=== PATIENT | female | born 1965 | race Caucasian/White ===

== ENCOUNTER 2017-03-12 22:24 | Emergency (ER) | payer SELFPAY ==
[2017-03-12] MEDS ORDERED: ONDANSETRON HCL INJ/PF 4 MG/2 ML SDV IV ONE (22:30)
[2017-03-12] MEDS ORDERED: NORMAL SALINE 1000 ML 1,000 ML IV ONE (22:30)
[2017-03-12 22:42] VITALS: BP 182/77
[2017-03-12 23:16] LABS: ALANINE AMINOTRANSFERASE 28 U/L (9-52); ALBUMIN 4.4 g/dL (3.5-5.0); ALKALINE PHOSPHATASE 80 U/L (38-126); ANION GAP 13 (5-19); ASPARTATE AMINO TRANSFERASE 23 U/L (14-36); BILIRUBIN,DIRECT 0.4 mg/dL (0.0-0.4); BILIRUBIN,TOTAL 0.7 mg/dL (0.2-1.3); BLOOD UREA NITROGEN 14 mg/dL (7-20); CALCIUM 9.6 mg/dL (8.4-10.2); CARBON DIOXIDE 26 mmol/L (22-30); CHLORIDE 102 mmol/L (98-107); CREATININE RESULT 0.63 mg/dL (0.52-1.25); GLUCOSE 115 mg/dL (75-110); SODIUM 140.9 mmol/L (137-145); TOTAL PROTEIN 7.2 g/dL (6.3-8.2)
--- NOTE | 2017-03-12 23:16 | ER Document Report ---
ED General - General Chief Complaint: Nausea/Vomiting Stated Complaint: NAUSEA/VOMITING Time Seen by Provider: 03/12/17 22:29 Notes: Patient is a 52-year-old female without past medical history who presents with 24 hours of progressively worsening nausea, vomiting and epigastric discomfort. Describes epigastric discomfort as a dull, raw, moderately intense pain. Notes that she has frequent belching and throat discomfort with this. No history of similar symptoms in the past. Nothing improves or worsens her symptoms. She has not seen her primary care doctor regarding todays concerns. She denies any chest pain, shortness of breath, pleuritic pain, hemoptysis, lower abdominal pain, vaginal bleeding, vaginal discharge or dysuria. No flank pain. Past Medical History - General Information source: Patient - Social History Smoking Status: Never Smoker Frequency of alcohol use: None Drug Abuse: None Lives with: Spouse/Significant other Family History: Reviewed & Not Pertinent Review of Systems - Review of Systems Notes: Constitutional: Negative for fever. HENT: Negative for sore throat. Eyes: Negative for visual changes. Cardiovascular: Negative for chest pain. Respiratory: Negative for shortness of breath. Gastrointestinal: Positive for epigastric abdominal pain and vomiting Genitourinary: Negative for dysuria. Musculoskeletal: Negative for back pain. Skin: Negative for rash. Neurological: Negative for headaches, weakness or numbness. 10 point ROS negative except as marked above and in HPI. Physical Exam - Vital signs Vitals: Temp Pulse Resp BP Pulse Ox 98.0 F 68 16 182/77 H 100 03/12/17 22:29 03/12/17 22:29 03/12/17 22:29 03/12/17 22:29 03/12/17 22:29 Interpretation: Hypertensive Notes: PHYSICAL EXAMINATION: GENERAL: Well-appearing, well-nourished and in no acute distress. HEAD: Atraumatic, normocephalic. EYES: Pupils equal round and reactive to light, extraocular movements intact, sclera anicteric, conjunctiva are normal. ENT: nares patent, oropharynx clear without exudates. Moist mucous membranes. NECK: Normal range of motion, supple without lymphadenopathy LUNGS: Breath sounds clear to auscultation bilaterally and equal. No wheezes rales or rhonchi. HEART: Regular rate and rhythm without murmurs ABDOMEN: Soft, mild epigastric abdominal tenderness, normoactive bowel sounds. No guarding, no rebound. No masses appreciated. EXTREMITIES: Normal range of motion, no pitting or edema. No cyanosis. NEUROLOGICAL: No focal neurological deficits. Moves all extremities spontaneously and on command. PSYCH: Normal mood, normal affect. SKIN: Warm, Dry, normal turgor, no rashes or lesions noted. Course - Re-evaluation Re-evalutation: 03/12/17 23:15 Patient presents with epigastric abdominal pain with associated reflux symptoms most consistent with likely gastritis. Patient has no focal abdominal tenderness on examination. Right upper quadrant ultrasound does not demonstrate any evidence of acute cholecystitis or cholelithiasis. Lipase is normal. No LFT changes. Based on history and exam, I do not suspect ACS, pulmonary embolus, SBO, mesenteric ischemia, acute pancreatitis, biliary pathology, or an abdominal aortic dissection. Patient has had improvement of symptoms here with a GI cocktail. At this time will discharge with return precautions and follow-up recommendations. Verbal discharge instructions given a the bedside and opportunity for questions given. Medication warnings reviewed. Patient is in agreement with this plan and has verbalized understanding of return precautions and the need for primary care follow-up in the next 24-72 hours. - Vital Signs Vital signs: Temp Pulse Resp BP Pulse Ox 98.0 F 68 16 182/77 H 100 03/12/17 22:29 03/12/17 22:29 03/12/17 22:29 03/12/17 22:29 03/12/17 22:29 - Laboratory Result Diagrams: 03/12/17 22:49 Laboratory results interpreted by me: 03/12/17 03/12/17 22:49 23:33 Glucose 115 H Urine Ketones 20 H Discharge - Discharge Condition: Good Disposition: HOME, SELF-CARE
[2017-03-12 23:17] LABS: POTASSIUM 3.8 mmol/L (3.6-5.0)
[2017-03-12 23:18] LABS: ADD ON TESTING BLD IN LAB ACKNOWLEDGE
[2017-03-12 23:38] LABS: LIPASE 66.5 U/L (23-300)
[2017-03-13 00:09] LABS: APPEARANCE,URINE CLEAR; BILIRUBIN,URINE NEGATIVE (NEGATIVE); GLUCOSE, URINE NEGATIVE (NEGATIVE); KETONES,URINE 20 mg/dL (NEGATIVE); LEUKOCYTE ESTERASE,URINE NEGATIVE (NEGATIVE); NITRITE,URINE NEGATIVE (NEGATIVE); PROTEIN,URINE NEGATIVE (NEGATIVE); UROBILINOGEN,URINE NEGATIVE mg/dL (<2.0)
[2017-03-13] MEDS ORDERED: PROCHLORPERAZINE EDISYLATE INJ 10 MG/2 ML VIAL ONE (00:58)
[2017-03-13] MEDS ORDERED: METOCLOPRAMIDE HCL ORAL SOLN 10 MG/10 ML UDCUP ONE (00:59)
[2017-03-13] MEDS ORDERED: DIPHENHYDRAMINE HCL 50 MG/ML VIAL ONE (00:59)
[2017-03-13] MEDS ORDERED: LIDOCAINE 2% VISCOUS SOLN 20 ML UDCUP ONE (01:00)
[2017-03-13] MEDS ORDERED: MAG HYDROX/AL HYDROX/SIMETH SUSP 30 ML UDCUP ONE (01:00)
[2017-03-13] MEDS ORDERED: ALBUTEROL SULFATE 0.083% NEB 2.5 MG/3 ML AMPUL NEB ONE (02:11)
[2017-03-13] MEDS ORDERED: ONDANSETRON ODT 4 MG TAB (6 TAB/DSPK) ONE (02:17)
--- NOTE | 2017-03-13 13:11 | EKG REPORT ---
SEVERITY:- NORMAL ECG - SINUS RHYTHM : Confirmed by: Segundo Avilez 13-Mar-2017 13:10:16
== END 2017-03-13 02:43 | disposition home or self-care (01) ==
LOC: ER 22:24
DX: R11.2 Nausea with vomiting, unspecified (principal); R10.13 Epigastric pain
CPT/HCPCS: 93005; 99284; 96361; 96374; 36415; 83690; 80053; 81001; 84484; 93010; J2405; J7030

== ENCOUNTER 2017-03-17 12:36 | Inpatient (IN) | payer SELFPAY ==
[~2017-03-17 12:36] MED LIST: DEXAMETHASONE SOD PHOSPHATE INJ 4 MG/1 ML VIAL ONE; GLYCOPYRROLATE INJ 0.4 MG/2 ML VIAL ONE; LIDOCAINE 2% INJ-PF (20 MG/ML) 10 ML AMPUL ONE; NEOSTIGMINE METHYLSULFATE 10 MG/10 ML VIAL ONE; ONDANSETRON HCL INJ/PF 4 MG/2 ML SDV ONE; ROCURONIUM BROMIDE INJ 50 MG/5 ML VIAL IV ONE
[2017-03-17] MEDS ORDERED: PIPERACILLIN/TAZOBACTAM 3.375 GM VIAL IV ONE (13:22)
[2017-03-17] MEDS ORDERED: MORPHINE SULFATE 10 MG/ML INJ ONE ×2 (13:23→15:54)
[2017-03-17] MEDS ORDERED: ONDANSETRON HCL INJ/PF 4 MG/2 ML SDV ONE ×2 (13:24→19:39)
[2017-03-17] MEDS ORDERED: HYDROMORPHONE HCL INJ/PF 2 MG/ML AMPULE ONE (16:58)
[2017-03-17] MEDS ORDERED: FENTANYL CITRATE INJ/PF 100 MCG/2 ML AMPUL ONE (16:58)
[2017-03-17] MEDS ORDERED: EPHEDRINE SULFATE INJ 50 MG/1 ML AMPULE ONE (16:59)
[2017-03-17] MEDS ORDERED: MIDAZOLAM 2 MG/2 ML INJ ONE (16:59)
[2017-03-17] MEDS ORDERED: ACETAMINOPHEN 100 ML IV ONE (16:59)
[2017-03-17] MEDS ORDERED: PROPOFOL INJ 200 MG/20 ML VIAL IV ONE (16:59)
[2017-03-17] MEDS ORDERED: FAMOTIDINE INJ/PF 20 MG/2 ML SDV IV ONE (19:49)
[2017-03-17] MEDS ORDERED: HYDROMORPHONE HCL INJ/PF 2 MG/ML AMPULE IV PRN ×2 (20:06→20:07)
[2017-03-17] MEDS ORDERED: LORAZEPAM INJ 2 MG/1 ML VIAL IV PRN (23:56)
[2017-03-18] MEDS ORDERED: MORPHINE SULFATE 10 MG/ML INJ ONE (01:12)
[2017-03-18] MEDS ORDERED: MORPHINE SULFATE 10 MG/ML INJ IV PRN ×3 (01:34→05:20)
[2017-03-18] MEDS: PIPERACILLIN SODIUM/TAZOBACTAM 3.375 GM in NORMAL SALINE 100 ML IV SCH ×3 (05:34→17:15)
[2017-03-18] MEDS: FAMOTIDINE INJ/PF 20 MG/2 ML SDV IV SCH ×2 (05:34→17:14)
[2017-03-18 07:41] LABS: HEMATOCRIT 38.4 % (36.0-47.0); HEMOGLOBIN 12.8 g/dL (12.0-15.5); MEAN CORPUSCULAR HEMOGLOBIN 29.9 pg (27.0-33.4); MEAN CORPUSCULAR HGB CONC 33.4 g/dL (32.0-36.0); MEAN CORPUSCULAR VOLUME 89 fl (80-97); RED CELL DISTRIBUTION WIDTH 13.8 % (11.5-14.0); WHITE BLOOD COUNT 12.8 10^3/uL (4.0-10.5)
[2017-03-18 08:07] LABS: ANION GAP 12 (5-19); BLOOD UREA NITROGEN 12 mg/dL (7-20); CALCIUM 8.4 mg/dL (8.4-10.2); CARBON DIOXIDE 28 mmol/L (22-30); CHLORIDE 100 mmol/L (98-107); CREATININE RESULT 0.51 mg/dL (0.52-1.25); GLUCOSE 123 mg/dL (75-110); POTASSIUM 3.8 mmol/L (3.6-5.0); SODIUM 140.4 mmol/L (137-145)
[2017-03-18] MEDS ORDERED: LORAZEPAM INJ 2 MG/1 ML VIAL IV PRN (08:08)
[2017-03-18 08:22] LABS: ABSOLUTE BASOPHILS # (AUTO) 0.1 10^3/uL (0.0-0.2); ABSOLUTE EOSINOPHILS # (AUTO) 0.2 10^3/uL (0.0-0.6); ABSOLUTE LYMPHOCYTES (AUTO) 1.1 10^3/uL (0.5-4.7); ABSOLUTE MONOCYTES (AUTO) 1.1 10^3/uL (0.1-1.4); ABSOLUTE NEUT (AUTO) 7.9 10^3/uL (1.7-8.2); BASOPHILS % (AUTO) 0.5 % (0-2); EOSINOPHILS % (AUTO) 1.6 % (0-6); HEMOGLOBIN 13.9 g/dL (12.0-15.5); HGB HCT DIFFERENCE 0.7; LYMPHOCYTES % (AUTO) 10.6 % (13-45); MEAN CORPUSCULAR HEMOGLOBIN 30.3 pg (27.0-33.4); MEAN CORPUSCULAR HGB CONC 33.8 g/dL (32.0-36.0); MEAN CORPUSCULAR VOLUME 90 fl (80-97); MONOCYTES % (AUTO) 10.7 % (3-13); RED BLOOD COUNT 4.58 10^6/uL (3.72-5.28); RED CELL DISTRIBUTION WIDTH 14.1 % (11.5-14.0); SEGMENTED NEUTROPHILS % (AUTO) 76.6 % (42-78); WHITE BLOOD COUNT 10.3 10^3/uL (4.0-10.5)
--- NOTE | 2017-03-18 09:37 | OPERATIVE REPORT E ---
Operative Report NAME: YI LAWLER : 1965 AGE: 52Y DATE OF SURGERY: 03/17/2017 ROOM: 533 PREOPERATIVE DIAGNOSIS: Appendicitis. POSTOPERATIVE DIAGNOSIS: Perforated appendicitis with abscess. OPERATION: Attempted laparoscopic appendectomy converted to an open appendectomy, partial cecectomy, and drainage of intra-abdominal abscess. SURGEON: AMANDA GOLDSMITH M.D. ANESTHESIA: General. INDICATION FOR SURGERY: The patient is a female who presents with a 1-week history of lower abdominal pain. She had been to the emergency room approximately 3 days ago and was diagnosed with gastroenteritis and discharged. She goes to her urgent care today where a CT scan was ordered showing appendicitis. FINDINGS AT SURGERY: The patient had an acute gangrenous perforated appendicitis with an abscess being present in an interloop portion of bowel. The infection and inflammation also involved the cecal area adjacent to the appendix opening. Because of this, a partial cecectomy was performed in order to staple across viable tissue that was not involved with any significant inflammation. After doing the partial cecectomy, the ileocecal valve was intact and was not encroached upon significantly. PROCEDURE: After informed consent was obtained, the patient was taken to the operating room and placed in the supine position. General endotracheal anesthesia was administered. The patient's abdomen was then prepped/draped in the usual sterile fashion. An incision was then made in the left upper quadrant, and a 5 mm Optiview trocar was inserted through this incision, through the fascia and into the abdominal cavity under direct vision. The abdomen was then insufflated. Looking inside, no injuries were noted. A 12 mm port was then placed in the left lower quadrant and a second 5 mm port placed through a right upper quadrant incision. Looking down the pelvis, there was inflammation with small bowel being involved. These were inflammatory adhesions. These were broken up exposing the abscess that was interloop caused by perforated appendicitis. The purulent fluid as aspirated. Care was taken to dissect the gangrenous appendix away from the surrounding structures. I was able to free up the appendix and view the mesentery of the appendix. However, the inflammation involved the cecum adjacent to the appendix. I did not feel that I would be able to staple across the cecum adequately laparoscopically. The lateral peritoneal fold was then incised mobilizing the right colon. The ports were then removed, and lower midline incision was then made in the skin using a scalpel. It was carried down to and through the fascial layer using electrocautery. The appendix, cecum, and terminal ileum was then brought up out of the wound. The mesentery of the appendix was then divided using harmonic scalpel. I was then able to place a DAVEY-75 stapling device across the cecum next to the appendix. This was right at the ileocecal valve, but I did not encroach upon it. The cecum involved in the inflammation was then removed. The staple line was then imbricated using a running 3-0 Vicryl suture placed in Lembert fashion burying the suture line. Again, care was taken to avoid encroaching upon the ileocecal valve. Omentum was then brought down to cover the suture line. I had taken down the gastrocolic ligament from the transverse colon and dividing it on the left side laterally. This allowed a tongue or omentum to be brought down and sutured to the right colon and he cecum covering the suture line. The abdominal cavity was copiously irrigated until the return fluid was clear. A 15-Mode drain was brought through the port site in the right upper quadrant down in the right lower quadrant, going down into the pelvis. It was secured to the skin using 3-0 nylon suture. The anterior abdominal fascial layer was then closed using running #1-PDS suture. The skin incision at the umbilicus was approximated loosely using #4-0 nylon suture. The rest of the wound was then packed open, and a dry dressing was placed on top. The patient was then awakened, extubated, taken from the operating room in stable condition. SPECIMENS: Appendix and partial cecum along with abscess fluid for gram stain, culture, and sensitivity. ESTIMATED BLOOD LOSS: 50 mL. CLASSIFICATION OF WOUND: Dirty . DRAINS AND PACKS: The wound was packed open, and a drain was placed intra-abdominally. COMPLICATIONS: None. DICTATING PHYSICIAN: AMANDA GOLDSMITH M.D. [id number] PHY#: [id number] ID: [id number] JOB#: [id number] ACCT: [id number] cc:AMANDA GOLDSMITH M.D. > [facility]
--- NOTE | 2017-03-18 09:45 | HISTORY AND PHYSICAL E ---
History and Physical NAME: YI LAWLER : 1965 AGE: 52Y ADMITTED: 03/17/2017 ROOM: 533 CHIEF COMPLAINT: Lower abdominal pain. HISTORY OF PRESENT ILLNESS: The patient is a 52-year-old female who presents with lower abdominal pain for 1 week. It was steadily getting worse, and she went to the emergency room 3 days prior where she was diagnosed with gastroenteritis and discharged home. She continued to have abdominal pain and therefore came to an urgent care who then had a CT scan which showed appendicitis, during her then to go to the emergency room. Her white blood cell count was 10,000. She has had nausea but no vomiting, and she denies any diarrhea or constipation. PAST SURGICAL HISTORY: 1. Breast augmentation. 2. Abdominoplasty. 3. Total abdominal hysterectomy. ALLERGIES TO MEDICATION: None. MEDICATIONS: Effexor. PAST MEDICAL HISTORY: Medical problems: 1. Anxiety. 2. Depression. SOCIAL HISTORY: Single. FAMILY HISTORY: Noncontributory. REVIEW OF SYSTEMS: CONSTITUTIONAL: Not feeling well. GASTROINTESTINAL: Abdominal pain and nausea. PSYCHOLOGICAL: Anxiety/depression. A 12-point review of systems was obtained with pertinent positives discussed and all others being negative. PHYSICAL EXAMINATION: VITAL SIGNS: Afebrile. GENERAL: The patient is lying in bed. She is in mild distress secondary to abdominal pain. HEENT: Eyes nonicteric. NECK: No lymphadenopathy. HEART: Regular. LUNGS: Clear. BACK: Nontender. ABDOMEN: Soft, mildly distended, tender in the suprapubic region. No hernias. Previous abdominoplasty scars. EXTREMITIES: No edema, cyanosis. NEUROLOGICAL: The patient appears to be neurologically intact without any deficits. PSYCHOLOGICAL: The patient is coherent, cooperative, and appears to answer questions fully. DIAGNOSTIC DATA: The patient's CT scan shows a 2 cm acute appendicitis being present with appendix located below the umbilicus and having a redundant right colon. It does not show any obvious abscess. ASSESSMENT: Acute abdominal pain secondary to acute appendicitis. I have also explained that she does have a very dilated appendix, and this could be a mucocele or even carcinoma. I have discussed laparoscopic appendectomy, possible laparotomy with her in case this does hose turner to be a mucocele. With these types of disease process, usually an open appendectomy is the ideal surgical method in removing it. Other risks include but not limited to bleeding, infection, anesthesia risks, heart and lung problems, wound healing problems, hernia formation, injuries to abdominal structures causing morbidity, need for further intervention, leakage from the staple line, bleeding from the staple line needing further surgery, etc. She accepts the risks and wishes to proceed. PLAN: 1. The patient is admitted to the hospital. 2. NPO. 3. IV fluids. 4. IV antibiotics. 5. Laparoscopic appendectomy, possible laparotomy. DICTATING PHYSICIAN: AMANDA GOLDSMITH M.D. [id number] PHY#: [id number] ID: [id number] JOB#: [id number] ACCT: [id number] cc:LIANNA MATHIAS MD, M.D
--- NOTE | 2017-03-18 09:50 | PDOC PROGRESS REPORT ---
Subjective Progress Note for:: 03/18/17 Subjective:: diffuse abdominal pain. Physical Exam Vital Signs: Temp Pulse Resp BP Pulse Ox 97.8 F 77 16 138/83 H 99 03/18/17 07:00 03/18/17 07:00 03/18/17 07:00 03/18/17 07:00 03/18/17 07:00 Intake & Output 03/17/17 03/18/17 03/19/17 06:59 06:59 06:59 Intake Total 400 Output Total 640 Balance -240 Weight 59 kg General appearance: PRESENT: no acute distress, cooperative Respiratory exam: PRESENT: clear to auscultation john Cardiovascular exam: PRESENT: RRR GI/Abdominal exam: PRESENT: other - soft, nd, moderate lower abdominal tenderness. drain output turbid. wound clean, open. fascia intact. Extremities exam: PRESENT: other - no swelling and no tenderness Results Laboratory Results: 03/18/17 07:01 03/18/17 07:01 03/18/17 03/18/17 07:01 07:01 WBC 12.8 H RBC 4.30 Hgb 12.8 Hct 38.4 MCV 89 MCH 29.9 MCHC 33.4 RDW 13.8 Plt Count 203 Sodium 140.4 Potassium 3.8 Chloride 100 Carbon Dioxide 28 Anion Gap 12 BUN 12 Creatinine 0.51 L Est GFR ( Amer) > 60 Est GFR (Non-Af Amer) > 60 Glucose 123 H Calcium 8.4 Assessment & Plan - Diagnosis (1) Perforated appendicitis Is this a current diagnosis for this admission?: YesPlan: s/p open appendectomy. looks ok. cont abx. start dressing changes, ambulate. await bowel function. restart xanax.
[2017-03-18] MEDS: HYDROMORPHONE HCL INJ/PF 2 MG/ML AMPULE IV PRN ×4 (11:10→22:00)
[2017-03-18] MEDS: ALPRAZOLAM 0.5 MG TABLET PO SCH (11:10)
[2017-03-18 11:40] LABS: PARTIAL THROMBOPLASTIN TIME 29.1 SEC (23.5-35.8); PROTHROMBIN TIME 13.2 SEC (11.4-15.4)
[2017-03-18] MEDS: NORMAL SALINE 1000 ML 1,000 ML IV PRN (15:29)
[2017-03-18] MEDS: ONDANSETRON HCL INJ/PF 4 MG/2 ML SDV IV PRN (21:59)
[2017-03-19] MEDS: PIPERACILLIN SODIUM/TAZOBACTAM 3.375 GM in NORMAL SALINE 100 ML IV SCH ×5 (00:48→23:03)
[2017-03-19] MEDS: HYDROMORPHONE HCL INJ/PF 2 MG/ML AMPULE IV PRN ×7 (01:30→23:03)
[2017-03-19] MEDS: NORMAL SALINE 1000 ML 1,000 ML IV PRN (03:39)
[2017-03-19] MEDS: FAMOTIDINE INJ/PF 20 MG/2 ML SDV IV SCH ×2 (05:21→17:01)
[2017-03-19] MEDS: ALPRAZOLAM 0.5 MG TABLET PO SCH (09:15)
[2017-03-19 09:39] LABS: ALBUMIN 3.7 g/dL (3.5-5.0); ANION GAP 14 (5-19); BLOOD UREA NITROGEN 15 mg/dL (7-20); CALCIUM 9.6 mg/dL (8.4-10.2); CARBON DIOXIDE 33 mmol/L (22-30); CHLORIDE 93 mmol/L (98-107); CREATININE RESULT 0.63 mg/dL (0.52-1.25); GLUCOSE 102 mg/dL (75-110); POTASSIUM 3.3 mmol/L (3.6-5.0); SODIUM 140.4 mmol/L (137-145)
[2017-03-19 09:40] LABS: ALANINE AMINOTRANSFERASE 31 U/L (9-52); ALKALINE PHOSPHATASE 90 U/L (38-126); ASPARTATE AMINO TRANSFERASE 22 U/L (14-36); BILIRUBIN,DIRECT 0.4 mg/dL (0.0-0.4); BILIRUBIN,TOTAL 0.6 mg/dL (0.2-1.3); TOTAL PROTEIN 6.7 g/dL (6.3-8.2)
--- NOTE | 2017-03-19 11:36 | PROGRESS NOTE E ---
Progress Note NAME: YI LAWLER : 1965 AGE: 52Y DATE: 03/19/2017 ROOM: 533 This is the second postop day. She is hungry, but she has not passed gas nor a bowel movement yet. Her abdomen is soft with mild tenderness. JAJA drain is only about 5 mL, but still somewhat turbid. Her white count yesterday was 12.8. The plan is to keep her n.p.o. maybe for another day and then, once she passes flatus, then we will start her on clear liquids. She had a perforated appendicitis with stapling of the cecum, which, according to Dr. Jackson, the surgeon, was tenuous. DICTATING PHYSICIAN: NILSA CRAFT M.D. [id number] PHY#: [id number] ID: [id number] JOB#: [id number] ACCT: [id number] cc: >
[2017-03-20] MEDS: HYDROMORPHONE HCL INJ/PF 2 MG/ML AMPULE IV PRN ×6 (03:36→23:28)
[2017-03-20] MEDS: PIPERACILLIN SODIUM/TAZOBACTAM 3.375 GM in NORMAL SALINE 100 ML IV SCH ×4 (06:11→23:28)
[2017-03-20] MEDS: FAMOTIDINE INJ/PF 20 MG/2 ML SDV IV SCH ×2 (06:11→17:44)
[2017-03-20] MEDS: ALPRAZOLAM 0.5 MG TABLET PO SCH (09:11)
[2017-03-20] MEDS: NORMAL SALINE 1000 ML 1,000 ML IV PRN ×2 (12:06→20:57)
--- NOTE | 2017-03-20 14:58 | PROGRESS NOTE E ---
Progress Note NAME: YI LAWLER : 1965 AGE: 52Y DATE: 03/20/2017 ROOM: 533 SUBJECTIVE: She has not passed gas nor bowel movement yet. Her abdomen is soft with mild tenderness. JAJA is about 10 mL from last night that is somewhat clear compared to yesterday. OBJECTIVE: ABDOMEN: Her abdomen is slightly distended but soft. PLAN: The plan is to start her on just ice chips and once she passes flatus, increase it to clear fluids. She may have a shower, and we will start her on VAC therapy for her abdominal incision which is opened up to the subcutaneous area. DICTATING PHYSICIAN: NILSA CRAFT M.D. [id number] PHY#: [id number] ID: [id number] JOB#: [id number] ACCT: [id number] cc:NILSA CRAFT M.D. >
[2017-03-21] MEDS: HYDROMORPHONE HCL INJ/PF 2 MG/ML AMPULE IV PRN ×4 (02:39→22:41)
[2017-03-21] MEDS: PIPERACILLIN SODIUM/TAZOBACTAM 3.375 GM in NORMAL SALINE 100 ML IV SCH ×3 (06:06→17:16)
[2017-03-21] MEDS: FAMOTIDINE INJ/PF 20 MG/2 ML SDV IV SCH ×2 (06:06→17:15)
[2017-03-21] MEDS: NORMAL SALINE 1000 ML 1,000 ML IV PRN ×3 (06:07→22:41)
[2017-03-21] MEDS ORDERED: ACETAMINOPHEN 325 MG TABLET ONE (08:00)
[2017-03-21] MEDS ORDERED: DEXTROSE 40% GEL 15 GM TUBE PO PRN ×2 (08:08)
[2017-03-21] MEDS ORDERED: GLUCAGON,HUMAN RECOMB 1 MG INJ SUBCUT PRN (08:08)
[2017-03-21] MEDS ORDERED: DEXTROSE 50%-WATER 25 GM/50 ML DISP.SYRIN IV PRN ×2 (08:08)
[2017-03-21] MEDS ORDERED: NORMAL SALINE 1000 ML 500 ML IV PRN (08:46)
[2017-03-21 09:00] LABS: HEMATOCRIT 33.3 % (36.0-47.0); HEMOGLOBIN 10.9 g/dL (12.0-15.5); HGB HCT DIFFERENCE -0.6; MEAN CORPUSCULAR HEMOGLOBIN 29.5 pg (27.0-33.4); MEAN CORPUSCULAR HGB CONC 32.6 g/dL (32.0-36.0); MEAN CORPUSCULAR VOLUME 91 fl (80-97); RED BLOOD COUNT 3.68 10^6/uL (3.72-5.28); RED CELL DISTRIBUTION WIDTH 14.3 % (11.5-14.0); WHITE BLOOD COUNT 8.6 10^3/uL (4.0-10.5)
[2017-03-21 09:29] LABS: ANION GAP 8 (5-19); BLOOD UREA NITROGEN 4 mg/dL (7-20); CARBON DIOXIDE 34 mmol/L (22-30); CHLORIDE 99 mmol/L (98-107); CREATININE RESULT 0.57 mg/dL (0.52-1.25); GLUCOSE 205 mg/dL (75-110); SODIUM 140.8 mmol/L (137-145)
[2017-03-21] MEDS ORDERED: ACETAMINOPHEN 325 MG TABLET PO ONE (09:30)
[2017-03-21 09:32] LABS: POTASSIUM 2.9 mmol/L (3.6-5.0)
[2017-03-21] MEDS: ALPRAZOLAM 0.5 MG TABLET PO SCH (09:56)
[2017-03-21] MEDS: POTASSIUM CHLORIDE 20 MEQ/50 ML RTU IV SCH ×3 (10:46→19:45)
--- NOTE | 2017-03-21 12:49 | PDOC CONSULTATION ---
Consultation Consult Date: 03/21/17 Attending physician:: AMANDA GOLDSMITH Consult reason:: Hypoxia History of Present Illness Admission Date/PCP: 03/17/17 23:47 JACQUI WOOTEN PA-C Patient complains of: SOB History of Present Illness: YI LAWLER is a 52 year old female, w/ anxiety and depression developed acute abdomen several days ago found to have appendicitis, eventually underwent appendectomy on 03/17/17 w/ post-operative diagnosis of ruptured appendicitis and peritonitis. Pt on antibiotics and on IV dilaudid for pain. She was on xanax at home and this was continued during this hospital stay. This morning, she has pain and was given IV dilaudid. Subsequently she was found in respiratory disstress w/ shallow respirations and cyanosis. O2 saturation reportedly in 50s. Rapid response was called and patient was placed on oxygen, was awakened and her oxygenation improved. D-dimer was obtained and is elevated. Consult was made for further evaluation. Pt reportedly took xanax from her home meds and family took it away. She denies taking the medication but admits taking flexeril. Past Medical History Psychiatric Medical History: Reports: Depression - anxiety, General Anxiety Disorder Past Surgical History Past Surgical History: Reports: None - abdominoplasty, breast augmentation, Hysterectomy Social History Information Source: Patient Smoking Status: Current Every Day Smoker Frequency of Alcohol Use: None Hx Recreational Drug Use: Yes Drugs: Marijuana - Advance Directive Resuscitation Status: Full Code Family History Family History: None - reported Parental Family History Reviewed: Yes Children Family History Reviewed: Yes Sibling(s) Family History Reviewed.: Yes Medication/Allergy Home Medications: Alprazolam [Xanax] 1 mg PO DAILY 03/17/17 Famotidine [Pepcid 40 mg Tablet] 40 mg PO Q12 03/17/17 Zolpidem Tartrate [Ambien 5 mg Tablet] 5 mg PO QHS 03/17/17 Allergies/Adverse Reactions: No Known Allergies Allergy (Unverified 03/17/17 22:02) Review of Systems Constitutional: ABSENT: chills, fever(s), headache(s), weight gain, weight loss Eyes: ABSENT: visual disturbances Ears: ABSENT: hearing changes Nose, Mouth, and Throat: ABSENT: mouth pain Cardiovascular: ABSENT: chest pain, dyspnea on exertion, edema, orthropnea, palpitations Respiratory: PRESENT: cough - occasional. ABSENT: dyspnea, hemoptysis, sputum Gastrointestinal: ABSENT: abdominal pain, constipation, diarrhea, hematemesis, hematochezia, nausea, vomiting Genitourinary: ABSENT: difficulty urinating, dysuria, hematuria Musculoskeletal: ABSENT: joint swelling Integumentary: ABSENT: pruritus, rash, wounds Neurological: ABSENT: abnormal gait, abnormal speech, confusion, dizziness, focal weakness, syncope Psychiatric: ABSENT: anxiety, depression, homidical ideation, suicidal ideation Endocrine: ABSENT: cold intolerance, heat intolerance, polydipsia, polyuria Hematologic/Lymphatic: ABSENT: easy bleeding, easy bruising Physical Exam Vital Signs: Temp Pulse Resp BP Pulse Ox 98.2 F 93 16 114/79 100 03/21/17 11:19 03/21/17 11:19 03/21/17 11:19 03/21/17 11:19 03/21/17 11:19 Intake & Output 03/20/17 03/21/17 03/22/17 06:59 06:59 06:59 Intake Total 2096 2734 Output Total 980 2485 Balance 1116 249 General appearance: PRESENT: no acute distress, cooperative, well-developed, well-nourished, other - nasal canula O2 Head exam: PRESENT: atraumatic, normocephalic Eye exam: PRESENT: conjunctiva pale, EOMI, PERRLA. ABSENT: scleral icterus Ear exam: PRESENT: normal external ear exam. ABSENT: drainage Mouth exam: PRESENT: moist, neck supple, tongue midline Neck exam: ABSENT: carotid bruit, JVD, thyromegaly Respiratory exam: PRESENT: clear to auscultation john. ABSENT: rales, rhonchi, wheezes Cardiovascular exam: PRESENT: RRR, +S1, +S2. ABSENT: diastolic murmur, rubs, systolic murmur Pulses: PRESENT: normal dorsalis pedis pul Vascular exam: PRESENT: normal capillary refill GI/Abdominal exam: PRESENT: hypoactive bowel sounds, normal bowel sounds - limited due to discomfort, soft, tenderness, other - drain and vac in place.. ABSENT: distended, guarding, mass - limited due discomfort secondary to recent surgery, organolmegaly, rebound Rectal exam: PRESENT: deferred Extremities exam: PRESENT: full ROM. ABSENT: calf tenderness, clubbing, pedal edema Neurological exam: PRESENT: alert, awake, oriented to person, oriented to place , oriented to time, oriented to situation Psychiatric exam: PRESENT: appropriate affect, normal mood. ABSENT: homicidal ideation, suicidal ideation Skin exam: PRESENT: dry, intact, warm. ABSENT: cyanosis, rash Results Laboratory Results: 03/21/17 08:40 03/21/17 08:40 03/21/17 03/21/17 08:40 08:40 WBC 8.6 RBC 3.68 L Hgb 10.9 L Hct 33.3 L MCV 91 MCH 29.5 MCHC 32.6 RDW 14.3 H Plt Count 300 Sodium 140.8 Potassium 2.9 L* Chloride 99 Carbon Dioxide 34 H Anion Gap 8 BUN 4 L Creatinine 0.57 Est GFR ( Amer) > 60 Est GFR (Non-Af Amer) > 60 Glucose 205 H Calcium 8.0 L Impressions: Abdomen/Pelvis CT 03/17/17 11:00 IMPRESSION: 1. ACUTE APPENDICITIS. 2. NONOBSTRUCTING CALCULI IN THE RIGHT KIDNEY. 3. CORTICAL CYSTS IN BOTH KIDNEYS. 4. HEPATIC CYSTS. 5. NO OTHER SIGNIFICANT FINDINGS. Assessment & Plan - Diagnosis (1) Hypoxia Is this a current diagnosis for this admission?: Yes (2) Hypokalemia Is this a current diagnosis for this admission?: Yes (3) Fever Qualifiers: Fever type: unspecified Qualified Code(s): R50.9 - Fever, unspecified Is this a current diagnosis for this admission?: Yes (4) Perforated appendicitis Is this a current diagnosis for this admission?: Yes - Time Time Spent: 50 to 70 Minutes - Plan Summary Plan Summary: Check CTA of the chest to rule out PE. Replace potassium. Episode likely due to medication induced respiratory depression. Decrease dilaudid dose. Avoid sedatives. Thank you so much for this consultation. We will follow patient with you.
--- NOTE | 2017-03-21 17:11 | EKG REPORT ---
SEVERITY:- ABNORMAL ECG - SINUS TACHYCARDIA PROBABLE LEFT ATRIAL ABNORMALITY NONSPECIFIC INTRAVENTRICULAR CONDUCTION DELAY : Confirmed by: Sona Tompkins MD 21-Mar-2017 17:10:49
--- NOTE | 2017-03-21 20:47 | PROGRESS NOTE E ---
Progress Note NAME: YI LAWLER : 1965 AGE: 52Y DATE: 03/21/2017 ROOM: 533 SUBJECTIVE: The patient is about 4 post op day. An ACCESS ASSOC was called by the nurse this morning because she was found to have pulse rate of 155 and O2 sat of 55% on room air and with a temp of 101.4. She was also noted by the nurse that patient was blue and diaphoretic. The ACCESS ASSOC ordered an EKG which showed sinus tachycardia. Her blood pressure is now 127/63 with a pulse rate of 117. Blood cultures were also done and I also added D-dimer stat to rule out any suggestion of PE. Her O2 sat now is up to 97% on 2 L of oxygen. The heart rate is now around 117 per minute. Patient denies any abdominal pain, no shortness of breath. She looks comfortable right now. She said she was sleeping when this happened and she does not remember really being in distress. She denies any abdominal pain or shortness of breath. Her abdomen is just slightly distended. It was the same yesterday. She claims she passed a small amount of flatus last night. JAJA drain is about 55 mL of serosanguineous from last night and now draining about 10 mL. There is no abdominal tenderness. The wound VAC is in place which was put in yesterday. I ordered to be placed. IMPRESSION: 1. SEPTIC REACTION. 2. RULE OUT PE. PLAN: 1. Ordered a blood culture and D-dimer as well as stat CBC and BMP and lactic acid. 2. I ordered a medical consultation. 3. Patient may need a CT angio to rule out PE although at the present time she is breathing comfortably with relatively good O2 saturation on 2 L of oxygen. 4. Will also give her a bolus of normal saline 500 mL just to see if the heart rate will decrease. She does have a Parson but she claims she voided earlier. DICTATING PHYSICIAN: NILSA CRAFT M.D. [id number] MANY#: [id number] ID: [id number] JOB#: [id number] ACCT: [id number] cc: >
[2017-03-21] MEDS ORDERED: POTASSI CL 20 MEQ/50 ML RIDER 20 MEQ/50 ML RTUPB IV ONE (22:30)
[2017-03-21] MEDS ORDERED: POTASSIUM CHLORIDE 20 MEQ/50 ML RTU IV ONE (22:30)
[2017-03-22] MEDS: PIPERACILLIN SODIUM/TAZOBACTAM 3.375 GM in NORMAL SALINE 100 ML IV SCH ×4 (01:28→17:30)
[2017-03-22] MEDS: HYDROMORPHONE HCL INJ/PF 2 MG/ML AMPULE IV PRN ×3 (03:51→17:36)
[2017-03-22 06:08] LABS: ANION GAP 11 (5-19); BLOOD UREA NITROGEN 2 mg/dL (7-20); CALCIUM 8.8 mg/dL (8.4-10.2); CARBON DIOXIDE 31 mmol/L (22-30); CHLORIDE 102 mmol/L (98-107); CREATININE RESULT 0.54 mg/dL (0.52-1.25); GLUCOSE 105 mg/dL (75-110); POTASSIUM 3.4 mmol/L (3.6-5.0); SODIUM 143.6 mmol/L (137-145)
[2017-03-22] MEDS: FAMOTIDINE INJ/PF 20 MG/2 ML SDV IV SCH ×2 (06:17→17:30)
--- NOTE | 2017-03-22 08:56 | PDOC PROGRESS REPORT ---
Subjective Progress Note for:: 03/22/17 Subjective:: Patient denies any cough shortness of breath, , sinus congestion, chills or fever. Denies diarrhea. No nausea or vomiting. Patient reports that she takes her Xanax at bedtime instead of daily in the morning. No reported discomfort at this time. Physical Exam Vital Signs: Temp Pulse Resp BP Pulse Ox 97.5 F 80 15 153/97 H 100 03/22/17 07:33 03/22/17 07:33 03/22/17 07:33 03/22/17 07:33 03/22/17 07:33 Intake & Output 03/21/17 03/22/17 03/23/17 06:59 06:59 06:59 Intake Total 2734 2541 Output Total 2485 1070 Balance 249 1471 General appearance: PRESENT: no acute distress, cooperative Head exam: PRESENT: normocephalic Eye exam: PRESENT: EOMI Mouth exam: PRESENT: moist, neck supple Neck exam: ABSENT: JVD Respiratory exam: PRESENT: clear to auscultation john Cardiovascular exam: PRESENT: RRR. ABSENT: gallop GI/Abdominal exam: PRESENT: soft. ABSENT: distended Extremities exam: ABSENT: pedal edema - Change Neurological exam: PRESENT: alert, awake, oriented to situation Skin exam: PRESENT: dry, warm. ABSENT: cyanosis Results Laboratory Results: 03/21/17 08:40 03/22/17 04:49 03/21/17 03/21/17 03/22/17 08:40 08:40 04:49 WBC 8.6 RBC 3.68 L Hgb 10.9 L Hct 33.3 L MCV 91 MCH 29.5 MCHC 32.6 RDW 14.3 H Plt Count 300 Sodium 140.8 143.6 Potassium 2.9 L* 3.4 L Chloride 99 102 Carbon Dioxide 34 H 31 H Anion Gap 8 11 BUN 4 L 2 L Creatinine 0.57 0.54 Est GFR ( Amer) > 60 > 60 Est GFR (Non-Af Amer) > 60 > 60 Glucose 205 H 105 Calcium 8.0 L 8.8 Impressions: Abdomen/Pelvis CT 03/17/17 11:00 IMPRESSION: 1. ACUTE APPENDICITIS. 2. NONOBSTRUCTING CALCULI IN THE RIGHT KIDNEY. 3. CORTICAL CYSTS IN BOTH KIDNEYS. 4. HEPATIC CYSTS. 5. NO OTHER SIGNIFICANT FINDINGS. Chest X-Ray 03/21/17 00:00 IMPRESSION: NO ACUTE RADIOGRAPHIC FINDING IN THE CHEST. Lung Scan-VQ NM 03/21/17 00:00 IMPRESSION: NORMAL VENTILATION-PERFUSION LUNG SCAN. NEGATIVE FOR PULMONARY EMBOLI. Assessment & Plan - Diagnosis (1) Hypoxia Is this a current diagnosis for this admission?: Yes (2) Hypokalemia Is this a current diagnosis for this admission?: Yes (3) Fever Qualifiers: Fever type: unspecified Qualified Code(s): R50.9 - Fever, unspecified Is this a current diagnosis for this admission?: Yes (4) Perforated appendicitis Is this a current diagnosis for this admission?: Yes - Time Time Spent with patient: 15-24 minutes - Plan Summary Plan Summary: We are going to change her Xanax to at bedtime schedule. We will replace potassium, Recheck level in the morning. Her hypoxic episode likely secondary to hypoventilation brought about by medications. Her VQ scan was negative for pulmonary embolism. Chest x-ray did not reveal any acute infiltrate. We will sign off from her case. Please
[2017-03-22] MEDS ORDERED: POTASSIUM CHLORIDE 10 MEQ TABLET.SA PO ONE (09:15)
[2017-03-22] MEDS ORDERED: LIDOCAINE 1% INJ-PF (10 MG/ML) 30 ML SDV ONE (11:47)
[2017-03-22] MEDS ORDERED: LIDOCAINE 2% INJ (20 MG/ML) 20 ML MDV INJ PRN (12:00)
--- NOTE | 2017-03-22 12:36 | Operative Report ---
Operative Report DATE OF SURGERY: 03/22/17 PREOPERATIVE DIAGNOSIS: Special surgical site infection, resolving POSTOPERATIVE DIAGNOSIS: same OPERATION: delayed primary closure infra umbilical midline wound SURGEON: ZIGGY JAY ANESTHESIA: Local TISSUE REMOVED OR ALTERED: mnone COMPLICATIONS: none ESTIMATED BLOOD LOSS: none INTRAOPERATIVE FINDINGS: see below PROCEDURE: Patient was brought up to the supine position bed elevated room 533 Surgical plan surgical time out conducted The findings are significant for soft postoperative abdomen. Midline incision above and below the umbilicus approximately a, but open inferiorly. Wound VAC had been removed, and a nice pink field of [id number] granulation tissue was found. Surrounding skin was redundant clean, viable and felt to be suitable for delayed primary closure. The surrounding skin was prepped and draped with Betadine. Surgical plan and surgical timeout was conducted The skin around the wound was anesthetized with 1% lidocaine plain. All [place] drain was trimmed and placed in the bed of the incision. He was approximated with 8 vertical mattress sutures, 3-0 Ethilon. the drain was also secured to the skin with 3-0 Ethilon suture. \4 x 4's and tape applied to the midline wound. of Note the right-sided abdominal drain was removed uneventfully
[2017-03-22] MEDS ORDERED: FLUCONAZOLE 100 MG TABLET PO ONE (13:45)
[2017-03-22] MEDS: ONDANSETRON HCL INJ/PF 4 MG/2 ML SDV IV PRN (21:40)
[2017-03-22] MEDS ORDERED: ALPRAZOLAM 0.5 MG TABLET PO SCH (22:00)
[2017-03-23] MEDS: PIPERACILLIN SODIUM/TAZOBACTAM 3.375 GM in NORMAL SALINE 100 ML IV SCH ×2 (00:16→05:57)
[2017-03-23] MEDS: FAMOTIDINE INJ/PF 20 MG/2 ML SDV IV SCH (05:58)
[2017-03-23 06:56] LABS: ANION GAP 14 (5-19); BLOOD UREA NITROGEN 4 mg/dL (7-20); CALCIUM 9.5 mg/dL (8.4-10.2); CARBON DIOXIDE 30 mmol/L (22-30); CHLORIDE 98 mmol/L (98-107); CREATININE RESULT 0.62 mg/dL (0.52-1.25); GLUCOSE 93 mg/dL (75-110); POTASSIUM 3.7 mmol/L (3.6-5.0); SODIUM 142.2 mmol/L (137-145)
--- NOTE | 2017-03-23 09:18 | DISCHARGE SUMMARY E ---
Discharge Summary NAME: YI LAWLER : 1965 AGE: 52Y ADMITTED: 03/17/2017 DISCHARGED: 03/23/2017 FINAL DIAGNOSIS: Perforated appendicitis with abscess. PROCEDURES PERFORMED: 1. Attempted laparoscopic appendectomy converted to an open appendectomy. 2. Partial cecectomy. 3. Drainage of intraabdominal abscess. SUMMARY: This is a 53-year-old female who underwent attempted laparoscopic appendectomy and converted to an open appendectomy and partial cecectomy for perforated appendicitis with abscess. Her postoperative course was uneventful. Her abdominal wound, the skin and subcut were left open and a wound VAC was placed on 03/20/17. The wound VAC was discontinued and Dr. Garcia closed the wound on secondary intention and left a small drain on 03/22/17. The patient was able to tolerate regular diet on the day of discharge. She feels she does not need any pain medications at this time. She was advised to just take idiq-[id number] Tylenol or Advil for pains and to follow up with Dr. Garcia at [facility] on 03/25/27. She was advised not to lift any heavy objects greater than 10 pounds for the next 2 weeks and then gradually increase her activity for the next 2 weeks when she should have no restraints at the time. The wound looks good on discharge with a small drain. DICTATING PHYSICIAN: NILSA CRAFT M.D. [id number] PHY#: [id number] ID: [id number] JOB#: [id number] ACCT: [id number] cc:AMANDA GOLDSMITH M.D., FAUSTINO M.D. >
[2017-03-23 11:18] VITALS: BP 154/95
--- NOTE | 2017-03-23 13:38 | DISCHARGE SUMMARY E ---
Discharge Summary NAME: YI LAWLER : 1965 AGE: 52Y ADMITTED: 03/17/2017 DISCHARGED: 03/23/2017 FINAL DIAGNOSES: 1. Acute perforated appendicitis with abscess. 2. Status post open appendectomy and drainage with abnormal wound left open subcu and skin. HOSPITAL COURSE: Patient started on IV antibiotics on 03/17/2017 just before surgery. About 3 days ago, the wound VAC was placed at the incision and wound VAC discontinued yesterday and Dr. Garcia closed the wound with delayed closure. A small drain was placed. This morning, the wound looks good and dry. I left the drain and placed a new transparent dressing and drain will be removed in the surgical clinic in [address] Garcia. Patient refuses any pain medications at this time because he feels that the pain is not that bad to require any prescription medication. Also, prescription medication she claims make her feel nauseated. DISCHARGE INSTRUCTIONS: 1. Patient advised to avoid any lifting more than 10 pounds for the next 2 weeks until after seen in the surgical clinic. 2. She can have a regular diet, which she tolerated prior to discharge. DICTATING PHYSICIAN: NILSA CRAFT M.D. [id number] PHY#: [id number] ID: [id number] JOB#: [id number] ACCT: [id number] cc:AMANDA GOLDSMITH M.D. NILSA CRAFT M.D. >
== END 2017-03-23 11:35 | disposition home or self-care (01) | DRG 330 ==
LOC: ER 12:36 → 5 21:13 → ER 23:46 → 5 23:47
PROVIDERS: ADMIT Surgery; ATTEND Surgery
PROC: 0DBH0ZZ Excision of Cecum, Open Approach (ICD-10-PCS; 2017-03-17)
PROC: 0DJD4ZZ Inspection of Lower Intestinal Tract, Percutaneous Endoscopic Approach (ICD-10-PCS; 2017-03-17)
PROC: 0DTJ0ZZ Resection of Appendix, Open Approach (ICD-10-PCS; principal; 2017-03-17 18:00)
PROC: 0W9F30Z Drainage of Abdominal Wall with Drainage Device, Percutaneous Approach (ICD-10-PCS; 2017-03-22)
DX: K35.3 Acute appendicitis with localized peritonitis (principal); Q61.02 Congenital multiple renal cysts; F32.9 Major depressive disorder, single episode, unspecified; F41.1 Generalized anxiety disorder; F17.210 Nicotine dependence, cigarettes, uncomplicated; R09.02 Hypoxemia; E87.6 Hypokalemia; N20.0 Calculus of kidney; J70.9 Respiratory conditions due to unspecified external agent; T50.905A Adverse effect of unspecified drugs, medicaments and biological substances, initial encounter; Z90.710 Acquired absence of both cervix and uterus
CPT/HCPCS: 36415; 71010; 74177; 78582; 80048; 80053; 82565; 840; 85025; 85027; 85379; 85610; 85730; 87040; 87070; 87075; 87077; 87205; 88304; 93005; 93010; 94799; A9540; A9567; J0131; J1100; J1170; J2060; J2250; J2270; J2405; J2543; J2704; J3010; J3480; J3490; J7030; Q9969; S0028

== ENCOUNTER 2018-04-04 18:47 | Emergency (ER) | payer SELFPAY ==
[2018-04-04] MEDS ORDERED: FENTANYL CITRATE INJ/PF 100 MCG/2 ML AMPUL IV PRN (19:39)
[2018-04-04] MEDS ORDERED: KETOROLAC TROMETHAMINE INJ/PF 30 MG/1 ML SDV IV ONE (19:39)
[2018-04-04] MEDS ORDERED: RINGERS SOLUTION,LACTATED 1,000 ML IV ONE (19:39)
[2018-04-04] MEDS ORDERED: ONDANSETRON HCL INJ/PF 4 MG/2 ML SDV IV ONE (19:39)
--- NOTE | 2018-04-04 20:11 | RADIOLOGY REPORT (SQ) ---
EXAM DESCRIPTION: CT ABD/PELVIS NO ORAL OR IV COMPLETED DATE/TIME: 04/04/2018 7:53 pm REASON FOR STUDY: right flank pain three weeks COMPARISON: None. TECHNIQUE: CT scan of the abdomen and pelvis performed without intravenous or oral contrast. Images reviewed with lung, soft tissue, and bone windows. Reconstructed coronal and sagittal MPR images revi ewed. All images stored on PACS. All CT scanners at this facility use dose modulation, iterative reconstruction, and/or weight based d osing when appropriate to reduce radiation dose to as low as reasonably achievable (ALARA). [facility]: Dose Right [facility]: CareDose [facility]: Dose Right [facility]: Teradose 4D [facility]: Smart [employer] RADIATION DOSE: CT Rad equipment meets quality standard of care and radiation dose reduction techniq ues were employed. CTDIvol: 4.8 mGy. DLP: 221 mGy-cm.mGy. LIMITATIONS: None. FINDINGS: LOWER CHEST: No significant findings. No nodules or infiltrates. NON-CONTRASTED LIVER, SPLEEN, ADRENALS: Evaluation limited by lack of IV contrast. No identified sign ificant masses. Stable cyst right hepatic lobe. PANCREAS: No masses. No peripancreatic inflammatory changes. GALLBLADDER: No identified stones by CT criteria. No inflammatory changes to suggest cholecystitis. RIGHT KIDNEY AND URETER: No suspicious masses. Assessment limited by lack of IV contrast. Stable no nobstructing right renal calculi. No hydronephrosis or hydroureter. LEFT KIDNEY AND URETER: Stable cyst upper pole. No suspicious masses. Assessment limited by lack of IV contrast. No significant calcifications. No hydronephrosis or hydroureter. AORTA AND RETROPERITONEUM: No aneurysm. No retroperitoneal masses or adenopathy. BOWEL AND PERITONEAL CAVITY: No obvious masses or inflammatory changes. No free fluid. APPENDIX: Surgically absent. PELVIS, BLADDER, AND ABDOMINAL WALL:No abnormal masses. No free fluid. Bladder normal. BONES: No significant findings. OTHER: No other significant finding. IMPRESSION: STABLE RIGHT-SIDED NEPHROLITHIASIS. NO LOWER URINARY TRACT STONES OR HYDRONEPHROSIS. ADDITIONAL CHRONIC CHANGES ABOVE. COMMENT: Quality ID # [id number]: Final reports with documentation of one or more dose reduction techniques (e.g., Automated exposure control, adjustment of the mA and/or kV according to patient size, use of iterative reconstruction technique) TECHNICAL DOCUMENTATION: JOB ID: [id number]- All Rights Reserved Reading location - IP/workstation name: [email or web address]
[2018-04-04 20:49] LABS: ABSOLUTE EOSINOPHILS # (AUTO) 0.4 10^3/uL (0.0-0.6); ABSOLUTE LYMPHOCYTES (AUTO) 2.3 10^3/uL (0.5-4.7); ABSOLUTE MONOCYTES (AUTO) 0.5 10^3/uL (0.1-1.4); ABSOLUTE NEUT (AUTO) 2.7 10^3/uL (1.7-8.2); BASOPHILS % (AUTO) 0.5 % (0-2); EOSINOPHILS % (AUTO) 6.2 % (0-6); HEMATOCRIT 39.6 % (36.0-47.0); HEMOGLOBIN 13.4 g/dL (12.0-15.5); LYMPHOCYTES % (AUTO) 39.7 % (13-45); MEAN CORPUSCULAR HEMOGLOBIN 30.9 pg (27.0-33.4); MEAN CORPUSCULAR HGB CONC 33.9 g/dL (32.0-36.0); MEAN CORPUSCULAR VOLUME 91 fl (80-97); PLATELET COUNT 186 10^3/uL (150-450); RED BLOOD COUNT 4.34 10^6/uL (3.72-5.28); RED CELL DISTRIBUTION WIDTH 13.8 % (11.5-14.0); SEGMENTED NEUTROPHILS % (AUTO) 45.6 % (42-78); TOTAL CELLS COUNTED % (AUTO) 100 %; WHITE BLOOD COUNT 5.9 10^3/uL (4.0-10.5)
[2018-04-04 20:56] LABS: APPEARANCE,URINE CLEAR; BILIRUBIN,URINE NEGATIVE (NEGATIVE); COLOR,URINE YELLOW; GLUCOSE, URINE NEGATIVE (NEGATIVE); KETONES,URINE NEGATIVE (NEGATIVE); LEUKOCYTE ESTERASE,URINE NEGATIVE (NEGATIVE); NITRITE,URINE NEGATIVE (NEGATIVE); PROTEIN,URINE NEGATIVE (NEGATIVE); UROBILINOGEN,URINE NEGATIVE mg/dL (<2.0)
[2018-04-04] MEDS ORDERED: LIDOCAINE 5% (700 MG) TRANSDERMAL ADH..PATCH TP ONE (21:03)
--- NOTE | 2018-04-04 21:04 | ER Document Report ---
ED General - General Chief Complaint: Flank Pain Stated Complaint: POSSIBLE KIDNEY STONE Time Seen by Provider: 04/04/18 19:37 Notes: The patient is a 53-year-old female without chronic medical problems who presents with 3 weeks of right flank pain with associated nausea and fatigue. The patient describes the pain as intermittent, stabbing, aching pain to the right flank that has periods of abrupt worsening and also periods where it is almost completely gone. She has not noted that anything use or worsens the pain. She denies any diarrhea, vaginal bleeding, vaginal discharge, chest pain , pleuritic pain, or shortness of breath. She does note some associated nausea and vomiting. She has not seen her primary doctor regarding today's concerns. Nothing is new or different about her symptoms today that prompted a visit to the emergency department. TRAVEL OUTSIDE OF THE [place] IN LAST 30 DAYS: No - Related Data Allergies/Adverse Reactions: No Known Allergies Allergy (Verified 04/04/18 18:50) Past Medical History - General Information source: Patient - Social History Smoking Status: Never Smoker Chew tobacco use (# tins/day): No Frequency of alcohol use: None Drug Abuse: None Family History: Reviewed & Not Pertinent Patient has suicidal ideation: No Patient has homicidal ideation: No Renal/ Medical History: Denies: Hx Peritoneal Dialysis Psychiatric Medical History: Reports: Hx Depression - anxiety Past Surgical History: Reports: Hx Hysterectomy Review of Systems - Review of Systems Notes: Constitutional: Negative for fever. HENT: Negative for sore throat. Eyes: Negative for visual changes. Cardiovascular: Negative for chest pain. Respiratory: Negative for shortness of breath. Gastrointestinal: Positive for flank pain and vomiting Genitourinary: Negative for dysuria. Musculoskeletal: Negative for back pain. Skin: Negative for rash. Neurological: Negative for headaches, weakness or numbness. 10 point ROS negative except as marked above and in HPI. Physical Exam - Vital signs Vitals: Temp Pulse Resp BP Pulse Ox 98.2 F 73 16 121/67 97 04/04/18 18:55 04/04/18 18:55 04/04/18 18:55 04/04/18 18:55 04/04/18 18:55 Interpretation: Normal Notes: PHYSICAL EXAMINATION: GENERAL: Well-appearing, well-nourished and in no acute distress. HEAD: Atraumatic, normocephalic. EYES: Pupils equal round and reactive to light, extraocular movements intact, sclera anicteric, conjunctiva are normal. ENT: nares patent, oropharynx clear without exudates. Moist mucous membranes. NECK: Normal range of motion, supple without lymphadenopathy LUNGS: Breath sounds clear to auscultation bilaterally and equal. No wheezes rales or rhonchi. HEART: Regular rate and rhythm without murmurs ABDOMEN: Soft, nontender, normoactive bowel sounds. No guarding, no rebound. No masses appreciated. EXTREMITIES: Normal range of motion, no pitting or edema. No cyanosis. NEUROLOGICAL: No focal neurological deficits. Moves all extremities spontaneously and on command. PSYCH: Normal mood, normal affect. SKIN: Warm, Dry, normal turgor, no rashes or lesions noted. Course - Re-evaluation Re-evalutation: 04/04/18 21:26 Patient presents with 3 weeks of right flank pain with associated nausea and intermittent vomiting. Patient was concerned of the possibility of a kidney stone as the etiology of her symptoms. On assessment patient is very well in appearance, no distress, vitals within normal limits. Abdominal exam is without any focal areas of tenderness, rebound or guarding. There is absolutely no tenderness to the right upper quadrant to suggest an acute biliary pathology, no epigastric abdominal tenderness to suggest an acute pancreatitis or gastritis. She has continued to have regular bowel movements and has been able to tolerate oral intake today without difficulty. This makes the diagnosis of an acute bowel obstruction highly unlikely. CT abdomen pelvis without IV contrast was obtained to evaluate for possible kidney stone given the patient's report of complicated kidney stones in the past. This does show nephrolithiasis but no evidence of urolithiasis and no evidence of hydronephrosis that would account for the patient's symptoms. Her labs are broadly unremarkable with exception of microscopic hematuria. This could suggest that the patient has passed small kidney stones but is not actively passing one currently which could account for the intermittent nature of her symptoms. An alternative consideration would be a muscular skeletal strain as patient does report that heat and ice as well as topical lidocaine to the affected flank region has improved her pain substantially she also reports that the pain is worsened by movement and activity. Very low clinical suspicion for an acute pulmonary embolus. Well score is 0. Patient denies any shortness of breath which would be quite unusual for this diagnosis. I do not believe that the it is clinically indicated to proceed with d-dimer testing or CT of the chest particular given the reproducible nature as well as the location of her pain. At this time will discharge with return precautions and follow-up recommendations. Verbal discharge instructions given a the bedside and opportunity for questions given. Medication warnings reviewed. Patient is in agreement with this plan and has verbalized understanding of return precautions and the need for primary care follow-up in the next 24-72 hours. - Vital Signs Vital signs: Temp Pulse Resp BP Pulse Ox 97.7 F 73 20 120/86 H 99 04/04/18 21:38 04/04/18 18:55 04/04/18 21:34 04/04/18 21:34 04/04/18 21:34 - Laboratory Result Diagrams: 04/04/18 20:32 04/04/18 20:32 Laboratory results interpreted by me: 04/04/18 04/04/18 20:32 20:32 Eosinophils % 6.2 H Urine Blood LARGE H - Diagnostic Test Radiology reviewed: Reports reviewed Discharge - Discharge Clinical Impression: Right flank pain, Nausea Hematuria Qualifiers: Hematuria type: unspecified type Qualified Code(s): R31.9 - Hematuria, unspecified Condition: Good Disposition: HOME, SELF-CARE Additional Instructions: You have been seen in the Emergency Department (ED) for right flank pain. Your evaluation did not identify a clear cause of your symptoms but was generally reassuring. Your urine does show that you are passing blood into your urine but there is no obvious sign of infection at this time. Your CT scan shows stones in your kidney but no stones that are currently passing. It is possible that you have passed stones over the past several weeks and this could explain the blood in your urine as well as some of your symptoms. I would recommend that you follow-up closely with urology at your earliest convenience given her ongoing symptoms. For your pain: Take ibuprofen 600 mg and acetaminophen 1000 mg every 6 hours together as needed for pain. If this does not control your pain you may take 50 mg of oral tramadol every 4 hours as needed for pain not controlled by Tylenol ibuprofen taken together. If you find taking ibuprofen upsets your stomach you may also take famotidine which can be purchased [id number]. I would take 20 mg twice daily while taking improvement. Prescriptions: Tramadol HCl 50 mg PO Q6H PRN #10 tablet PRN Reason: Severe Pain Referrals: GHADA BUENROSTRO MD [Primary Care Provider] - Follow up as needed GHADA BILLINGS II, MD [[facility]] - Follow up in 3-5 days
[2018-04-04 21:08] LABS: ALANINE AMINOTRANSFERASE 16 U/L (9-52); ALKALINE PHOSPHATASE 52 U/L (38-126); ANION GAP 8 (5-19); ASPARTATE AMINO TRANSFERASE 20 U/L (14-36); BILIRUBIN,DIRECT 0.3 mg/dL (0.0-0.4); BILIRUBIN,TOTAL 0.3 mg/dL (0.2-1.3); BLOOD UREA NITROGEN 16 mg/dL (7-20); CALCIUM 9.5 mg/dL (8.4-10.2); CARBON DIOXIDE 29 mmol/L (22-30); CHLORIDE 104 mmol/L (98-107); GLUCOSE 97 mg/dL (75-110); LIPASE 252.6 U/L (23-300); POTASSIUM 4.1 mmol/L (3.6-5.0); SODIUM 141.1 mmol/L (137-145); TOTAL PROTEIN 6.6 g/dL (6.3-8.2)
[2018-04-04 21:39] VITALS: BP 120/86
== END 2018-04-04 21:39 | disposition home or self-care (01) ==
LOC: ER 18:47
DX: R10.9 Unspecified abdominal pain (principal); R31.9 Hematuria, unspecified; R11.2 Nausea with vomiting, unspecified; R53.83 Other fatigue
CPT/HCPCS: 99284; 96361; 96374; 96375; 36415; 87086; 83690; 85025; 80053; 81001; 74176; J3010; J1885; J2405; J7120